=== PATIENT | female | born 1980 | race Caucasian/White ===

== ENCOUNTER 2021-09-25 08:43 | Outpatient (CLI) | payer MEDICAID, SELFPAY ==
[2021-09-25 09:05] LABS: Hemoglobin 12.2 g/dL (12.0-15.0); Mean Corp Hgb Conc 33.9 g/dL (32-36); Mean Corpuscular Hgb 28.2 pg (27.0-32.0); Mean Corpuscular Volume 83.1 fL (81-99); Mean Platelet Vol. 10.5 fl (6.2-12.0); Platelet Count 290 K/mm3 (150-450); RBC Distribution Width CV 13.5 % (11.6-14.6); RBC Distribution Width SD 41.1 fl (35.1-43.9); Red Blood Count 4.33 M/mm3 (4.2-5.4); White Blood Count 5.1 K/mm3 (4.4-11.0)
[2021-09-25 09:26] LABS: Internal QC Validated? YES +Cl - CLEAR BKGD; Pregnancy, Serum, hCG Quali. NEGATIVE Negative
[2021-09-25 09:33] LABS: Anion Gap 5 (5-15); BUN 10 mg/dL (7-18); BUN/Creat Ratio 13.3 RATIO (10-20); Calcium,Total 8.4 mg/dL (8.5-10.1); Chloride 110 mmol/L (98-107); Creatinine, Serum 0.75 mg/dL (0.55-1.02); EST Glomerular Filtration Rate 90 mL/min (>60); Est Glom Filt Rate - Afr Amer 109 mL/min (>60); Glucose 97 mg/dL (74-106); Potassium 3.8 mmol/L (3.5-5.1); Sodium Level 141 mmol/L (136-145)
--- NOTE | 2021-09-27 09:42 | TILTTABLE_ITS ---
Staff Staff: Faye Krishnan Summary Pre Test Resting HR: 76 Pre Test Resting BP: 98/57 Minimum Test HR: 53 Maximum Test HR: 111 Minimum Test BP: 70/40 Maximum Test BP: 105/65 Reason for Test Termination: Syncope Physician Tilt Table Report Patient's Physicians Primary Care Physician: Gelacio Hanks Access Services Librarian: Tawny Jacob Indications/Diagnosis: Syncope Procedure Comments: The patient was brought to the noninvasive lab in the postabsorptive fasting state. Informed consent was obtained. The patient was then placed in the 70 degree head upright tilt table position after appropriate initial heart rate and blood pressure measurements were obtained. The initial heart rate was noted to be 79 bpm with an initial blood pressure of 98/57 mmHg. The patient was then placed in the 70 degree upright tilt position for total duration of 20 minutes. Continuous EKG monitoring as well as blood pressure measurements were obtained and symptom notation. The patient appeared to maintain sinus rhythm throughout the recording with only occasional episodes of shortness of breath. No rhythm abnormalities were noted. The patient was then placed back in the recumbent position and administered 0.4 mg of sublingual nitroglycerin as per protocol. The heart rate was noted to be 90 bpm with a blood pressure of 105/65 mmHg. The patient was then placed back in the 70 degree upright tilt position and noted a different feeling with more shortness of breath and initial heart rate rise to 111 bpm. Subsequently the patient was noted to have a tingling sensation in her chest with her vision darkening and her pulse dropping to 53 bpm and her blood pressure dropping to a tre of 70/40 mmHg in the patient becoming diaphoretic pale and unresponsive. EKG recorded at that time was noted to be junctional rhythm. The patient was then put back in the recumbent position administered intravenous fluids with improvement in the heart rate and blood blood pressure as well as mentation. The final heart rate was 66 bpm blood pressure of 100/64 mmHg. Summary: Tilt table test consistent with vasodepressor/vasovagal syncope
[2021-09-27 09:48] VITALS: BP 105/65; BP 70/40; BP 98/57
== END 2021-09-25 23:59 | disposition home or self-care (01) ==
PROVIDERS: PCP Family Medicine; Referring Provider Internal Medicine Cardiovascular Disease; Visit Provider Internal Medicine Cardiovascular Disease
DX: R42 Dizziness and giddiness (principal); R55 Syncope and collapse
CPT/HCPCS: 36415; 80048; 84703; 85027; 93660; J7040; A4216

== ENCOUNTER 2021-10-10 12:32 | Outpatient (CLI) | payer MEDICAID, SELFPAY ==
--- NOTE | 2021-10-10 12:42 | STEWCON_ITS ---
Reason For Study: Chest Pain; Syncope Stress Results Protocol: Geoffrey Protocol WITH DEFINITY Maximum Predicted HR: 180 bpm Target HR: 153 bpm % Maximum Predicted HR: 85 % DurationHeart Rate Stage (mm:ss) (bpm) BP Comment Baseline 76 102/60No Chest Pain; 4 ML Diluted Definity Geoffrey Protocol Stage I 3:00 103 112/68No Chest Pain Geoffrey Protocol Stage II 3:00 107 118/60Tight Left Chest Pain; Twinge-Mild Dyspnea Geoffrey Protocol Stage III 3:00 122 130/62Tinge Left Chest Geoffrey Protocol Stage IV 1:00 153 / Tinges Left Chest; Mild Dyspnea Recovery 100 100/60No Chest Pain Stress Duration: 10:00 mm:ss Maximum Stress HR: 153 bpm METS: 13 Baseline Echocardiogram Findings Stress Echo Wall motion Data Resting WM Intermediate WM Stress WM Resting Wall Motion Wall Motion Stress All segments Normal. All segments Normal. Ejection Fraction 55 %. Ejection Fraction 55 %. Stress Results Heart rate response: Adequate heart rate response Blood pressure response: Normal resting blood pressure-appropriate response Dysrhythmias: None Functional capacity: Good Stop secondary to: Chest discomfort. EKG Data Baseline ECG: Sinus rhythm. Peak exercise ECG: Somatic/motion artifact with beat to beat nonspecific ST segment variability. Symptoms with Stress The patient noted an element of chest discomfort and dyspnea during exercise with resolution in recovery. ECHO/Stress Test Echo W/Contrast Interpretation Summary Contrast injection performed Abnormal (technically adequate-percent predicted maximal heart rate greater patrick n or equal to 85%) stress echocardiogram secondary to: A) flat left ventricular systolic function/LVEF response to exercise B) post exercise 2D echocardiographic images potentially compatible with an conor ment of post exercise left ventricular dilatation Comment: Clinical correlation recommended Ordering Physician: Tawny Jacob Referring Physician: Tawny Jacob Performed By: Perla Delgado, SINA, RVT
== END 2021-10-10 23:59 | disposition home or self-care (01) ==
LOC: CVS 12:34
PROVIDERS: PCP Family Medicine; Referring Provider Internal Medicine Cardiovascular Disease; Visit Provider Internal Medicine Cardiovascular Disease
DX: R55 Syncope and collapse (principal)
CPT/HCPCS: 93350; Q9957; 93017; A4216; C8928

== ENCOUNTER 2022-05-12 20:09 | Emergency (ER) | payer MEDICAID, SELFPAY ==
[2022-05-12 20:10] VITALS: BP 112/64; PULSE 73; RESP 16; TEMP 37.2; O2SAT 98; BMI 24.7
--- NOTE | 2022-05-12 21:45 | EX.ED.VIS.UR ---
HPI HPI - URI History of Present Illness Chief Complaint: Cough Informant: patient Onset/Context/Timing Onset: Weeks (2) Context: Gradual Onset Timing: Continuous Quality: Sharp Location: Bilateral lungs Worsened by: - (Nothing) Relieved by: - (Nothing) Associated Symptoms Associated Symptoms: Positive for Headache, Nausea, Diarrhea, Chest Pain and Nonproductive cough; Negative for Nasal Congestion, Sinus Pressure, Vomiting, Shortness of Breath or Hemoptysis Narrative Narrative: Patient presents with cough and congestion that has been getting worse over the past 2 weeks. Patient states she has a history of pneumonia and she is concerned she may be developing pneumonia again. Patient states she was coughing up some green sputum but has not been able to produce any sputum over the last week. Patient denies any fevers or chills. Patient states she feels like she has some sharp pain in both lungs. Patient states it is constant. Patient states nothing makes it worse and nothing makes it better. Patient also admits to headache. Patient also admits to some nausea but denies any vomiting. Patient admits to some diarrhea. ROS ROS ED Constitutional Constitutional ED: Denies chills or fever(s) Eyes Eyes: Denies blurry vision or change in vision ENT ENT ED: Denies rhinorrhea or sore throat Cardiovascular Cardiovascular: Reports chest pain; Denies palpitations Respiratory/Chest Respiratory/Chest: Reports cough; Denies dyspnea Gastrointestinal Gastrointestinal: Reports diarrhea and nausea; Denies vomiting Genitourinary Genitourinary ED: Denies dysuria or hematuria Musculoskeletal Musculoskeletal: Denies back pain or neck pain Integumentary Denies abscess or rash Neurologic Neurologic: Denies headache(s) or weakness Allergic/Immunologic Allergic/Immunologic ED: Denies mouth swelling or urticaria PFSH PFSH Medical History no medical history no medical history Allergy/AdvReac Type Severity Reaction Status Date / Time clindamycin Allergy Anaphylaxis Verified 05/12/22 20:13 NSAIDS (Non-Steroidal Allergy PT UNSURE Verified 05/12/22 20:15 Anti-Inflamma OF REACTION Penicillins Allergy Anaphylaxis Verified 05/12/22 20:13 Corticosteroids AdvReac PT UNSURE Verified 05/12/22 20:15 (Glucocorticoids) OF REACTION [steroids] Sulfa (Sulfonamide AdvReac Vomiting Verified 05/12/22 20:13 Antibiotics) Surgical History (Updated 05/12/22 @ 21:[address] Mark Ibarra, DO) Hx of cholecystectomy Social History Smoking Status: Never smoker EXAM Physical Exam Const Vital Signs: 05/12/22 20:10 05/12/22 20:57 05/12/22 22:08 Temperature 98.9 F Temperature Source Temporal Pulse Rate 73 75 Respiratory Rate 16 16 Respiratory Effort Normal Respiratory Depth Normal Respiratory Pattern Normal Blood Pressure 112/64 Blood Pressure Mean 80 Pulse Ox 98 Oxygen Delivery Method Room Air Positive well nourished and well developed General Appearance ED: well developed HEENT Reports moist mucous membranes Neck supple and no JVD Resp normal respiratory effort Auscultation: rhonchi throughout (Slightly worse on the right) Cardio regular rate, regular rhythm and no murmurs GI normal to inspection, nondistended, normoactive bowel sounds and non-tender Palpation: soft Extremity normal to inspection General Extremety ED: Negative for edema or tenderness General Extremity: Negative for edema Neuro oriented x3, CN's II-XII intact bilaterally and no sensory deficits noted Sensorium / Orientation: alert Motor Exam: strength 5/5 throughout Psych mental status grossly normal Skin no rashes or lesions noted MDM MDM MDM Narrative Medical decision making narrative: PA and lateral chest x-ray was obtained. There are 2 views. On my interpretation, lung tierney are clear. There is normal cardiac silhouette. Bony thorax is normal. There is no acute process noted. Radiologist also interpreted the x-ray and agrees. COVID-19 rapid antigen was obtained and was negative. Influenza A and influenza B rapid antigens were obtained and were negative. Patient was given a DuoNeb aerosol here. Patient is feeling better on reevaluation. Patient was advised of her findings. Patient was instructed to follow-up with her primary care physician in 5 to 7 days. Patient understood and was agreeable with the plan. All questions were answered. Radiography Diagnostic Testing: Clinical Impression(s) from Imaging Studies Chest X-Ray 05/12/22 22:15 IMPRESSION: Normal x-ray examination of the chest. Electronically Signed: Emile Mayo MD at 22:24 EST , Discharge Plan Triage Chief Complaint: Cough ED Provider: Mark Ibarra Dx/Rx/DC Orders Clinical Impression: Viral upper respiratory infection, Cough Instructions: ED URI, Viral, No Abx (Adult) Primary Care Provider: Gelacio Hanks Referrals: Gelacio Hanks MD [Primary Care Provider] - 5-7 Days Disposition Disposition: Home, Self Care
[2022-05-12] MEDS: Ipratropium/Albuterol Sulfate 3 ML AMPUL.NEB INHALATION (22:07)
[2022-05-12 22:08] VITALS: PULSE 75; RESP 16
--- NOTE | 2022-05-12 22:15 | RAD_ITS ---
STUDY: X-RAY CHEST REASON FOR EXAM: Female, 41 years old. Cough TECHNIQUE: PA and lateral views of the chest. COMPARISON: None. FINDINGS: The lungs are clear and expanded. There is no demonstrated pleural abnormality. Normal size heart. Normal mediastinum and luis felipe. Normal visualized pulmonary arteries. Normal visualized aortic arch and descending thoracic aorta. Normal visualized thoracic spine. Normal visualized ribs, clavicles, and shoulders. There is no demonstrated abnormality of the visualized soft tissue structures of the upper abdomen. RAD/Chest PA and Lateral IMPRESSION: Normal x-ray examination of the chest. Electronically Signed: Emile Mayo MD at 22:24 EST ,
[2022-05-12 22:54] VITALS: BP 134/78; PULSE 98; RESP 16; O2SAT 99
== END 2022-05-12 23:04 | disposition home or self-care (01) ==
PROVIDERS: Emergency Provider Emergency Medicine; PCP Family Medicine; Visit Provider Emergency Medicine
DX: J06.9 Acute upper respiratory infection, unspecified (principal); R11.0 Nausea; R51.9 Headache, unspecified; R19.7 Diarrhea, unspecified; R05.9 Cough, unspecified
CPT/HCPCS: 71046; 87428; 94640; 99282